=== PATIENT | female | born 1960 | race Caucasian/White ===

== ENCOUNTER 2018-04-27 15:56 | Inpatient (IN) | payer BC ==
[2018-04-27 17:52] LABS: Albumin 3.1 g/dL (3.5-5.0); Calcium 8.8 mg/dL (8.4-10.2); Potassium 3.7 mmol/L (3.5-5.1); Total Bilirubin 1.6 mg/dL (0.2-1.3); Total Protein 6.7 g/dL (6.3-8.2)
[2018-04-27 17:58] LABS: Basophils % (A) 0 %; Eosinophils % (A) 0 %; HCT 27.9 % (34.0-46.0); HGB 8.9 gm/dL (11.4-16.0); Lymphocytes # (A) 0.4 k/uL (1.0-4.8); Lymphocytes % (A) 1 %; MCH 29.8 pg (25.0-35.0); MCV 93.3 fL (80.0-100.0); Mean Platelet Volume 7.2; Monocytes # (A) 0.4 k/uL (0-1.0); Monocytes % (A) 1 %; Neutrophils # (A) 26.4 k/uL (1.3-7.7); Neutrophils % (A) 96 %; Platelet Count 567 k/uL (150-450); RBC 2.99 m/uL (3.80-5.40); RDW 13.3 % (11.5-15.5)
[2018-04-27 18:00] LABS: WBC 27.4 k/uL (3.8-10.6)
--- NOTE | 2018-04-27 18:11 | XR ---
EXAMINATION TYPE: XR chest 2V DATE OF EXAM: 04/27/2018 COMPARISON: NONE HISTORY: Fever and chills TECHNIQUE: Frontal and lateral views of the chest are obtained. FINDINGS: Heart and mediastinum are normal. There is very slight blunting of posterior costophrenic angles. Lungs are clear of consolidation. There is no heart failure. Bony thorax is intact. IMPRESSION: Small pleural effusions. Normal heart.
[2018-04-27] MEDS ORDERED: SODIUM CHLORIDE 0.9% 1,000 ML IV ONE (18:14)
[2018-04-27] MEDS ORDERED: cefTRIAXone IN SWFI 1,000 MG/10 ML SYRINGE IVP STA (18:14)
[2018-04-27] MEDS: SODIUM CHLORIDE 0.9% 1,000 ML IV SCH ×5 (18:37→23:48)
--- NOTE | 2018-04-27 19:00 | ED ---
Fever HPI - General Source: patient, RN notes reviewed, old records reviewed Mode of arrival: wheelchair Limitations: no limitations <Tash Lane - Last Filed: 04/27/18 20:14> <Kenny Adames - Last Filed: 04/27/18 20:31> - General Chief Complaint: Fever Stated Complaint: low blood pressure Time Seen by Provider: 04/27/18 17:51 - History of Present Illness Initial Comments: 57-year-old female presents emergency department today with chief complaint of fevers, chills, and body aches and weakness for the past week. Patient states that she did start to develop some right-sided back pain radiating towards her leg, she attributed this to sciatica. She was seen by PCP today for her annual physical. Patient had lab work obtained and was telling her PCP of these results. She did have some blood work obtained at that time. Her white blood cell count was noted to be elevated at 20,000 as well as a hemoglobin of 10. Her urine was negative for any acute issues on the sample from the office. Patient was sent in for further evaluation due to the back pain and rule out urosepsis. Her blood pressures have been low over the past week, Patient reports over 90/60 earlier in the week. Patient reports that she isn't feeling dizzy and weak. (Tash Lane) - Related Data Home Medications Medication Instructions Recorded Confirmed FLUoxetine HCL [PROzac] 40 mg PO DAILY 04/27/18 04/27/18 Fish Oil/Dha/Epa [Fish Oil 1,200 1 cap PO DAILY 04/27/18 04/27/18 mg Fish Oil] amLODIPine [Norvasc] 5 mg PO DIRECTED 04/27/18 04/27/18 Allergies Allergy/AdvReac Type Severity Reaction Status Date / Time amoxicillin [From Augmentin] Allergy Rash/Hives Verified 04/27/18 18:00 clavulanic acid Allergy Rash/Hives Verified 04/27/18 18:00 [From Augmentin] clindamycin Allergy Rash/Hives Verified 04/27/18 18:00 niacin Allergy Rash/Hives Verified 04/27/18 18:01 Sulfa (Sulfonamide Allergy Rash/Hives Verified 04/27/18 18:00 Antibiotics) metronidazole [From Flagyl] AdvReac Confusion Verified 04/27/18 18:00 Review of Systems ROS Other: All systems not noted in ROS Statement are negative. <Tash Lane - Last Filed: 04/27/18 20:14> ROS Other: All systems not noted in ROS Statement are negative. <Kenny Adames - Last Filed: 04/27/18 20:31> ROS Statement: Those systems with pertinent positive or pertinent negative responses have been documented in the HPI. Past Medical History Past Medical History: Hypertension Additional Past Medical History / Comment(s): cervical ca Past Surgical History: Appendectomy Additional Past Surgical History / Comment(s): cervix stent Past Psychological History: Depression Past Alcohol Use History: None Reported Past Drug Use History: None Reported <Tash Lane - Last Filed: 04/27/18 20:14> General Exam Limitations: no limitations General appearance: alert, in no apparent distress Head exam: Present: atraumatic, normocephalic, normal inspection Eye exam: Present: normal appearance, PERRL, EOMI. Absent: scleral icterus, conjunctival injection, periorbital swelling ENT exam: Present: normal exam, mucous membranes moist Neck exam: Present: normal inspection. Absent: tenderness, meningismus, lymphadenopathy Respiratory exam: Present: normal lung sounds bilaterally. Absent: respiratory distress, wheezes, rales, rhonchi, stridor Cardiovascular Exam: Present: regular rate, normal rhythm, normal heart sounds. Absent: systolic murmur, diastolic murmur, rubs, gallop, clicks GI/Abdominal exam: Present: soft, normal bowel sounds. Absent: distended, guarding, rebound, rigid Extremities exam: Present: normal inspection, full ROM, normal capillary refill. Absent: tenderness, pedal edema, joint swelling, calf tenderness Back exam: Present: normal inspection Neurological exam: Present: alert, oriented X3, CN II-XII intact Psychiatric exam: Present: normal affect, normal mood Skin exam: Present: warm, dry, intact, normal color. Absent: rash <Tash Lane - Last Filed: 04/27/18 20:14> <Kenny Adames - Last Filed: 04/27/18 20:31> - General Exam Comments Initial Comments: This is a 57-year-old female. Alert and oriented. No significant distress. ( Tash Lane) Course <Tash Lane - Last Filed: 04/27/18 20:14> <Kenny Adames - Last Filed: 04/27/18 20:31> Vital Signs 04/27/18 04/27/18 16:58 18:23 Temperature 98.6 F 98 F Pulse Rate 97 93 Respiratory 18 20 Rate Blood Pressure 107/67 122/59 O2 Sat by Pulse 99 95 Oximetry - Reevaluation(s) Reevaluation #1: 04/27/18 20:31 I personally saw and examined the patient. I have reviewed and agree with the PAs findings including all diagnostic interpretations treatment plans is written unless otherwise stated. I did discuss the case with Dr. Copeland. Patient has improved with respect to heart rate with fluids. She will be placed on appropriate antibiotics. (Kenny Adames) Medical Decision Making - Lab Data Result diagrams: 04/27/18 17:26 04/27/18 17:26 - Radiology Data Radiology results: report reviewed <Tash Lane - Last Filed: 04/27/18 20:14> - Lab Data Result diagrams: 04/27/18 17:26 04/27/18 17:26 <Kenny Adames - Last Filed: 04/27/18 20:31> - Medical Decision Making 57-year-old female presents emergency department today with fevers, chills body aches and elevated white blood cell count at PCPs office today. She's been feeling this way for the past week. Urinalysis is positive for infection. Urine culture obtained. She was started on fluid boluses and Rocephin. Patient 's lactic acid was within normal limits. White blood cell count does show dramatic increased from earlier today jumped from 20,000-27,000 this time. She' s had no vomiting episodes or diarrhea. Her hemoglobin has dropped to 8.9 at this time. I did check a fecal occult for GI source of bleeding. She denies any other sources at this time. Patient states that she's had a history of cervical cancer in 2007. She also had a colonoscopy in 2007. EKG G shows normal sinus rhythm, prolonged QT. Ventricular 80 bpm. She is afebrile emergency department. Patient was started on IV Rocephin. Patient will be admitted at this time. Dr. Adames discussed the case with Dr. Copeland. (Tash Lane) - Lab Data Lab Results 0804/27/18 04/27/18 Range/Units 17:26 17:26 17:26 WBC 27.4 H* (3.8-10.6) k/uL RBC 2.99 L (3.80-5.40) m/uL Hgb 8.9 L (11.4-16.0) gm/dL Hct 27.9 L (34.0-46.0) % MCV 93.3 (80.0-100.0) fL MCH 29.8 (25.0-35.0) pg MCHC 32.0 (31.0-37.0) g/dL RDW 13.3 (11.5-15.5) % Plt Count 567 H (150-450) k/uL Neutrophils % 96 % Lymphocytes % 1 % Monocytes % 1 % Eosinophils % 0 % Basophils % 0 % Neutrophils # 26.4 H (1.3-7.7) k/uL Lymphocytes # 0.4 L (1.0-4.8) k/uL Monocytes # 0.4 (0-1.0) k/uL Eosinophils # 0.0 (0-0.7) k/uL Basophils # 0.0 (0-0.2) k/uL Sodium 137 (137-145) mmol/L Potassium 3.7 (3.5-5.1) mmol/L Chloride 104 (98-107) mmol/L Carbon Dioxide 16 L (22-30) mmol/L Anion Gap 17 mmol/L BUN 15 (7-17) mg/dL Creatinine 0.90 (0.52-1.04) mg/dL Est GFR (CKD-EPI)AfAm 81 (>60 ml/min/1.73 sqM) Est GFR (CKD-EPI)NonAf 71 (>60 ml/min/1.73 sqM) Glucose 123 H (74-99) mg/dL Plasma Lactic Acid Regino 1.6 (0.7-2.0) mmol/L Calcium 8.8 (8.4-10.2) mg/dL Total Bilirubin 1.6 H (0.2-1.3) mg/dL AST 39 H (14-36) U/L ALT 37 (9-52) U/L Alkaline Phosphatase 300 H (38-126) U/L Troponin I (0.000-0.034) ng/mL Total Protein 6.7 (6.3-8.2) g/dL Albumin 3.1 L (3.5-5.0) g/dL Amylase (30-110) U/L Lipase (23-300) U/L Urine Color Urine Appearance (Clear) Urine pH (5.0-8.0) Ur Specific Carbon (1.001-1.035) Urine Protein (Negative) Urine Glucose (UA) (Negative) Urine Ketones (Negative) Urine Blood (Negative) Urine Nitrite (Negative) Urine Bilirubin (Negative) Urine Urobilinogen (<2.0) mg/dL Ur Leukocyte Esterase (Negative) Urine WBC (0-5) /hpf Ur Squamous Epith Cells (0-4) /hpf Urine Bacteria (None) /hpf Granular Casts (0) /lpf Urine Mucus (None) /hpf Stool Occult Blood (Negative) Blood Type Blood Type Recheck Antibody Screen Spec Expiration Date 04/27/18 04/27/18 04/27/18 Range/Units 17:26 17:26 18:48 WBC (3.8-10.6) k/uL RBC (3.80-5.40) m/uL Hgb (11.4-16.0) gm/dL Hct (34.0-46.0) % MCV (80.0-100.0) fL MCH (25.0-35.0) pg MCHC (31.0-37.0) g/dL RDW (11.5-15.5) % Plt Count (150-450) k/uL Neutrophils % % Lymphocytes % % Monocytes % % Eosinophils % % Basophils % % Neutrophils # (1.3-7.7) k/uL Lymphocytes # (1.0-4.8) k/uL Monocytes # (0-1.0) k/uL Eosinophils # (0-0.7) k/uL Basophils # (0-0.2) k/uL Sodium (137-145) mmol/L Potassium (3.5-5.1) mmol/L Chloride (98-107) mmol/L Carbon Dioxide (22-30) mmol/L Anion Gap mmol/L BUN (7-17) mg/dL Creatinine (0.52-1.04) mg/dL Est GFR (CKD-EPI)AfAm (>60 ml/min/1.73 sqM) Est GFR (CKD-EPI)NonAf (>60 ml/min/1.73 sqM) Glucose (74-99) mg/dL Plasma Lactic Acid Regino (0.7-2.0) mmol/L Calcium (8.4-10.2) mg/dL Total Bilirubin (0.2-1.3) mg/dL AST (14-36) U/L ALT (9-52) U/L Alkaline Phosphatase (38-126) U/L Troponin I (0.000-0.034) ng/mL Total Protein (6.3-8.2) g/dL Albumin (3.5-5.0) g/dL Amylase 33 (30-110) U/L Lipase 18 L (23-300) U/L Urine Color Yellow Urine Appearance Cloudy H (Clear) Urine pH 6.0 (5.0-8.0) Ur Specific Carbon 1.014 (1.001-1.035) Urine Protein 2+ H (Negative) Urine Glucose (UA) Negative (Negative) Urine Ketones 2+ H (Negative) Urine Blood Small H (Negative) Urine Nitrite Negative (Negative) Urine Bilirubin 1+ H (Negative) Urine Urobilinogen 4.0 (<2.0) mg/dL Ur Leukocyte Esterase Large H (Negative) Urine WBC 40 H (0-5) /hpf Ur Squamous Epith Cells 5 H (0-4) /hpf Urine Bacteria Few H (None) /hpf Granular Casts 2 (0) /lpf Urine Mucus Occasional H (None) /hpf Stool Occult Blood (Negative) Blood Type O Positive Blood Type Recheck CABO Indicated Antibody Screen NEGATIVE Spec Expiration Date 04/30/2018232504/27/18 04/27/18 Range/Units 19:20 20:10 WBC (3.8-10.6) k/uL RBC (3.80-5.40) m/uL Hgb (11.4-16.0) gm/dL Hct (34.0-46.0) % MCV (80.0-100.0) fL MCH (25.0-35.0) pg MCHC (31.0-37.0) g/dL RDW (11.5-15.5) % Plt Count (150-450) k/uL Neutrophils % % Lymphocytes % % Monocytes % % Eosinophils % % Basophils % % Neutrophils # (1.3-7.7) k/uL Lymphocytes # (1.0-4.8) k/uL Monocytes # (0-1.0) k/uL Eosinophils # (0-0.7) k/uL Basophils # (0-0.2) k/uL Sodium (137-145) mmol/L Potassium (3.5-5.1) mmol/L Chloride (98-107) mmol/L Carbon Dioxide (22-30) mmol/L Anion Gap mmol/L BUN (7-17) mg/dL Creatinine (0.52-1.04) mg/dL Est GFR (CKD-EPI)AfAm (>60 ml/min/1.73 sqM) Est GFR (CKD-EPI)NonAf (>60 ml/min/1.73 sqM) Glucose (74-99) mg/dL Plasma Lactic Acid Regino (0.7-2.0) mmol/L Calcium (8.4-10.2) mg/dL Total Bilirubin (0.2-1.3) mg/dL AST (14-36) U/L ALT (9-52) U/L Alkaline Phosphatase (38-126) U/L Troponin I <0.012 (0.000-0.034) ng/mL Total Protein (6.3-8.2) g/dL Albumin (3.5-5.0) g/dL Amylase (30-110) U/L Lipase (23-300) U/L Urine Color Urine Appearance (Clear) Urine pH (5.0-8.0) Ur Specific Carbon (1.001-1.035) Urine Protein (Negative) Urine Glucose (UA) (Negative) Urine Ketones (Negative) Urine Blood (Negative) Urine Nitrite (Negative) Urine Bilirubin (Negative) Urine Urobilinogen (<2.0) mg/dL Ur Leukocyte Esterase (Negative) Urine WBC (0-5) /hpf Ur Squamous Epith Cells (0-4) /hpf Urine Bacteria (None) /hpf Granular Casts (0) /lpf Urine Mucus (None) /hpf Stool Occult Blood Negative (Negative) Blood Type Blood Type Recheck Antibody Screen Spec Expiration Date 04/27/18 20:21 EKG shows sinus rhythm, prolonged QT. Ventricular rate of 80 bpm. OK interval is 174. QRS duration 96. QT QTc is 412/4 and 98. (Tash Lane) - Radiology Data No evidence of renal or ureteral calculus. Slight fullness of the renal collecting systems of uncertain significance. Mild large bowel mesenteric edema on the right side more than the left. Clinical significance not clear. No intestinal wall thickening identified. Minimal free fluid in the pelvis of uncertain significance. Chest x-ray shows small pleural effusions. Normal heart. (Tsah Lane) Disposition Is patient prescribed a controlled substance at d/c from ED?: No Time of Disposition: 20:21 <[address] - Last Filed: 04/27/18 20:14> <Kenny Adames - Last Filed: 04/27/18 20:31> Clinical Impression: UTI (urinary tract infection), Sepsis, Anemia, Weakness Disposition: ADMITTED IP TO THIS HOSP Condition: Stable Instructions: Fever in Adults (ED) Referrals: Carlos Chadwick MD [Primary Care Provider] - 1-2 days
[2018-04-27 19:01] LABS: Appearance,Urine Cloudy (Clear); Bacteria,Urine Few /hpf; Bilirubin,Urine 1+ (Negative); Blood,Urine Small (Negative); Color,Urine Yellow; Glucose,Urine (UA) Negative (Negative); Granular Casts,Urine 2 /lpf (0); Ketones,Urine 2+ (Negative); Leukocyte Esterase,Urine Large (Negative); Mucus,Urine Occasional /hpf; Nitrite,Urine Negative (Negative); Protein,Urine 2+ (Negative); Specific Gravity,Urine 1.014 (1.001-1.035); Squamous Epithelial Cell,Urine 5 /hpf (0-4); WBC,Urine 40 /hpf (0-5)
[2018-04-27 19:30] LABS: Amylase 33 U/L (30-110); Lipase 18 U/L (23-300)
--- NOTE | 2018-04-27 20:09 | CT ---
EXAMINATION TYPE: CT abdomen pelvis w con DATE OF EXAM: 04/27/2018 COMPARISON: None HISTORY: Fever, chills, weakness. CT DLP: 1425 mGycm Automated exposure control for dose reduction was used. TECHNIQUE: Helical acquisition of images was performed from the lung bases through the pelvis. CONTRAST: Performed without Oral Contrast and with IV Contrast, patient injected with 100 mL of Isovue 300. FINDINGS: Lung bases are clear. There is no pleural effusion. Heart size is normal. Liver spleen pancreas appear normal. Gallbladder appears normal. Bile ducts are not dilated. There is no adrenal mass. The kidneys show satisfactory contrast opacification. There is slight fulln ess of the left and right renal pelvis. Ureters are not dilated. There are multiple enlarged retroper itoneal lymph nodes. These measure up to 2 x 1.2 cm. The appendix is not seen. There is no sign of ap pendicitis. There is no evidence of free air. There is a tiny amount of fluid in the pelvis. There is minimal edema in the pericolic fat. I see no intestinal wall thickening. There are no dilated loops. There is no sign of a bowel obstruction. There is no evidence of bony destructive process. IMPRESSION: NO EVIDENCE OF A RENAL OR URETERAL CALCULUS. SLIGHT FULLNESS OF THE RENAL COLLECTING SYSTEMS OF UNCER TAIN SIGNIFICANCE. MILD LARGE BOWEL MESENTERIC EDEMA ON THE RIGHT SIDE MORE THAN THE LEFT. CLINICAL S IGNIFICANCE IS NOT CLEAR. THERE IS NO INTESTINAL WALL THICKENING IDENTIFIED. THERE IS MINIMAL FREE FL UID IN THE PELVIS THAT IS OF UNCERTAIN SIGNIFICANCE.
[2018-04-27] MEDS ORDERED: ACETAMINOPHEN TAB 325 MG TAB PO PRN (20:26)
[2018-04-27] MEDS ORDERED: ONDANSETRON 4 MG/2 ML VIAL IVP PRN (20:26)
[2018-04-27] MEDS ORDERED: MORPHINE SULFATE 4 MG/ML SYRINGE IV PRN (20:26)
[2018-04-27] MEDS ORDERED: NALOXONE 0.4 MG/ML 1 ML VIAL IV PRN (20:26)
[2018-04-27] MEDS ORDERED: IBUPROFEN 400 MG TAB PO PRN (20:26)
[2018-04-27] MEDS: KETOROLAC 30 MG/ML 1 ML VIAL IVP PRN (23:44)
[2018-04-28] MEDS ORDERED: ALPRAZolam 0.25 MG TAB PO PRN (01:14)
[2018-04-28] MEDS ORDERED: amLODIPine 10 MG TAB PO SCH (01:15)
[2018-04-28] MEDS: Acetaminophen-Codeine 300-30mg TAB PO PRN ×2 (06:07→10:26)
[2018-04-28] MEDS: SODIUM CHLORIDE 0.9% 1,000 ML IV SCH (06:07)
[2018-04-28 07:39] LABS: ALT 31 U/L (9-52); AST 23 U/L (14-36); Albumin 2.3 g/dL (3.5-5.0); Alkaline Phosphatase 212 U/L (38-126); Anion Gap 10 mmol/L; Blood Urea Nitrogen 13 mg/dL (7-17); Calcium 8.1 mg/dL (8.4-10.2); Carbon Dioxide 17 mmol/L (22-30); Chloride 113 mmol/L (98-107); Glucose 115 mg/dL (74-99); Potassium 3.2 mmol/L (3.5-5.1); Sodium 140 mmol/L (137-145); Total Bilirubin 0.9 mg/dL (0.2-1.3); Total Protein 5.1 g/dL (6.3-8.2)
--- NOTE | 2018-04-28 08:38 | PN ---
PROGRESS NOTE DATE OF SERVICE: 04/28/2018 CHIEF COMPLAINTS: Fever and low blood pressure. HISTORY OF PRESENT ILLNESS: This is a 57-year-old woman with a past medical history of multiple medical problems including history of hypertension, cervical cancer, history of sciatica, appendectomy, being followed by Dr. Lore Maria in the outpatient setting, is not feeling well for the past several days. Patient had chills, fever since 8/ and patient was also noted blood pressure low compared to previous only running at 100 and high 90s. Because of concerns, patient came to [facility] for further evaluation. White count is elevated to 7.8, hemoglobin is 8.9, sepsis suspected. Patient is in for further evaluation and treatment. Abdominal, pelvis CAT scan was also done which showed mild . The patient also had no intestinal wall thickening identified and minimal free fluid was also noted. Patient admitted for further evaluation and treatment. There is no history of any fever, rigors. No history of headache, loss of consciousness, seizures. The patient had chemoradiation for cervical cancer in 2018. PAST MEDICAL HISTORY: History of hypertension, cervical cancer, appendectomy. MEDICATIONS PRIOR TO ADMISSION INCLUDE: 1. Norvasc 5 mg daily. 2. Fish oil p.o. daily. 3. Prozac 40 mg daily. ALLERGIES: AMOXICILLIN, CLAVULANIC, CLINDAMYCIN, NIACIN, SULFA, FLAGYL. FAMILY HISTORY: History of myocardial infarction in the family. SOCIAL HISTORY: No history of smoking. No history of alcohol intake. REVIEW OF SYSTEMS: ENT: No diminished hearing or vision. CARDIOVASCULAR SYSTEM: No angina or palpitations. RESPIRATORY: As mentioned earlier. : As mentioned earlier. : As mentioned earlier. NERVOUS SYSTEM: No numbness or weakness. ALLERGY/IMMUNOLOGY: No asthma or hayfever. MUSCULOSKELETAL: As mentioned earlier. HEMATOLOGY: No history of anemia. ENDOCRINE: No history of diabetes, hypothyroidism. CONSTITUTIONAL: As mentioned earlier. DERMATOLOGY: Negative. RHEUMATOLOGY: Negative. PSYCHIATRY: As mentioned earlier. PHYSICAL EXAM: Alert, oriented x3, pulse 87, blood pressure 108/86, respiration 18, temperature 97.8, pulse ox 98% on room air. HEENT: Conjunctivae normal. Oral mucosa moist. Neck is no jugular venous distention. No lymph node enlargement. CARDIOVASCULAR: S1, S2, muffled, no S3, no S4. RESPIRATORY: Breath sounds diminished in the bases, a few scattered rhonchi. No crackles. ABDOMEN: Soft, mild diffuse discomfort. Otherwise, no guarding, no rigidity. No mass palpable. LEGS: No edema,. no swelling. NERVOUS SYSTEM: Higher functions as mentioned earlier, moves all 4 limbs, no focal motor deficits. LYMPHATICS: No lymph node enlargement. SKIN: No ulcer, rash or bleeding. LABS: WBC 7.2, hemoglobin is 8.9, sodium 139, potassium 3.7. Total bilirubin is 1.6 and AST is 39. Alk phos is 300, UA noted. ASSESSMENT: 1. Acute urinary tract infection with sepsis, possibly. 2. Increased AST. 3. Increased alkaline phosphatase. 4. Increased WBC. 5. Anemia, normocytic anemia of chronic disease. 6. Hypertension. 7. History of cervical cancer, status post chemo radiation. 8. History of appendectomy/. 9. History of depression. RECOMMENDATION: In This 57-year-old woman who presented with multiple complex medical issues, will monitor the patient closely. Will initiate broad-spectrum IV antibiotics. Obtain cultures. Get Infectious Disease evaluation. Otherwise, I would also recommend symptomatic treatment. See orders for further details. Home medication be will be ordered. DVT prophylaxis and proton pump inhibitors, guarded prognosis because of multiple complex medical issues. Further recommendations to follow. A copy of this will be forwarded to Lore Maria who is the primary physician. MMODL / IJN: [id number] / MTDD
[2018-04-28] MEDS ORDERED: NON-FORMULARY DRUG (Fish Oil/Dha/Epa [Fish Oil 1,200 Mg Fish Oil] 1 CAP) PO SCH (09:00)
[2018-04-28] MEDS: HEPARIN SODIUM,PORCINE 5,000 UNIT/ML 1 ML VIAL SQ SCH ×2 (10:11→21:14)
[2018-04-28] MEDS: FLUoxetine HCL 20 MG CAP PO SCH (10:11)
[2018-04-28] MEDS: PANTOPRAZOLE 40 MG/10 ML VIAL IV SCH ×2 (10:12→10:25)
[2018-04-28] MEDS: cefTRIAXone IN SWFI 1,000 MG/10 ML SYRINGE IVP SCH (10:26)
[2018-04-28] MEDS ORDERED: Potassium Replacement Protocol 1 EACH MISC MISCELLANE PRN ×2 (11:27→18:42)
[2018-04-28] MEDS: POTASSIUM CHLORIDE ER 20 MEQ TAB.ER PO SCH ×2 (12:18→15:25)
[2018-04-28] MEDS ORDERED: HYDROmorphone 1 MG/ML 1 ML SYRINGE IVP PRN (12:24)
[2018-04-28] MEDS ORDERED: VANCOMYCIN IV PER PHARMACY 1 EACH MISC MISCELLANE PRN (13:35)
--- NOTE | 2018-04-28 14:49 | CT ---
EXAMINATION TYPE: CT brain wo con DATE OF EXAM: 04/28/2018 COMPARISON: None HISTORY: Headache CT DLP: 793.[address] of the brain was performed. The ventricles, basal cisterns and sulci overlying the cerebral convexities demonstrate a normal appe arance. There is no evidence for intracranial hemorrhage or sulcal effacement. No mass effects are seen.No midline shift. Osseous calvarium is intact. If symptoms persist consider MRI. IMPRESSION: 1. No evidence for acute intracranial process.
[2018-04-28] MEDS: VANCOMYCIN 1,250 MG in SODIUM CHLORIDE 0.9% 250 ML IVPB SCH ×2 (15:25→21:13)
[2018-04-28] MEDS: 0.9% NACL WITH KCL 20 MEQ/L 1,000 ML IV SCH (17:09)
[2018-04-28 17:48] LABS: Basophils % (A) 0 %; Eosinophils % (A) 0 %; HCT 30.3 % (34.0-46.0); HGB 9.8 gm/dL (11.4-16.0); Lymphocytes # (A) 0.6 k/uL (1.0-4.8); Lymphocytes % (A) 3 %; MCH 29.9 pg (25.0-35.0); MCHC 32.4 g/dL (31.0-37.0); MCV 92.3 fL (80.0-100.0); Monocytes # (A) 0.4 k/uL (0-1.0); Monocytes % (A) 2 %; Neutrophils # (A) 18.9 k/uL (1.3-7.7); Neutrophils % (A) 94 %; Platelet Count 433 k/uL (150-450); RBC 3.28 m/uL (3.80-5.40); RDW 13.3 % (11.5-15.5); WBC 20.1 k/uL (3.8-10.6)
[2018-04-28] MEDS ORDERED: POTASSIUM CHLORIDE ER 20 MEQ TAB.ER PO SCH (19:00)
--- NOTE | 2018-04-28 20:21 | PN ---
PROGRESS NOTE DATE OF SERVICE: 04/28/2018 This 57-year-old woman was admitted with fever and hypotension. Low blood pressure is being closely monitored. Patient also complains of a headache. No chest pain. No palpitations. No fever. A CT scan of the brain was requested by me today this morning because of the patient's severe headache which showed no evidence of intracranial process. Headache could be related to the generalized septic process. PAST MEDICAL HISTORY: Reviewed. REVIEW OF SYSTEMS: CARDIOVASCULAR: No angina. RESPIRATORY: As mentioned earlier. GI: As mentioned earlier. : As mentioned earlier. NERVOUS: As mentioned earlier. CURRENT MEDICATIONS: Reviewed, include: 1. Tylenol 650 every 6 hours p.r.n. 2. Tylenol No.3. 3. Rocephin 1 g IV daily. 4. Prozac. 5. Heparin. 6. Dilaudid. 7. Motrin. 8. Narcan. 9. Protonix. 10.Vancomycin. PHYSICAL EXAM: Patient is alert, oriented x3. The pulse is 88, blood pressure 170/65, respirations 18, temperature 97.3, pulse ox 96% on room air. HEENT: Conjunctivae normal. Oral mucosa moist. NECK: No jugular venous distention. No carotid bruits. No lymph node enlargement. CARDIOVASCULAR: S1, S2 muffled. RESPIRATORY: Breath sounds diminished in the bases. No rhonchi. No crackles. ABDOMEN: Soft, nontender. No mass palpable. LEGS: No edema. No swelling. NERVOUS SYSTEM: Higher functions as mentioned earlier. Moves all 4 limbs. No focal deficits. LYMPHATIC: No lymph nodes palpable in neck or axillae. SKIN: No ulcer, rash or bleeding. No neck stiffness. LAB STUDIES: At this time show CBC not available. WBC 140. Potassium 3.2 and albumin is 2.3. UA noted. Cultures are negative so far. ASSESSMENT: 1. Acute urinary tract infection with sepsis present on admission. 2. Headaches for evaluation. 3. Increased AST. 4. Increased alkaline phosphatase. 5. Urinalysis positive. 6. Increased WBC. 7. Anemia, normocytic anemia of chronic disease. 8. Hypertension. 9. History of cervical cancer, status post chemotherapy, radiation. 10.History of appendectomy. 11.History of depression. RECOMMENDATIONS AND DISCUSSION: Recommend to continue current medical management and symptomatic treatment. Will continue with empiric antibiotics and also get Infectious Disease evaluation. Cultures are pending at this time. Otherwise, continue the rest of medications, symptomatic treatment. Prognosis guarded because of multiple complex medical issues. CT of brain as mentioned earlier. Further recommendations to follow. MMODL / IJN: [id number] /
[2018-04-29] MEDS: 0.9% NACL WITH KCL 20 MEQ/L 1,000 ML IV SCH ×3 (02:43→23:57)
--- NOTE | 2018-04-29 07:36 | CONS ---
CONSULTATION DATE OF SERVICE: 04/28/2018. REASON FOR CONSULTATION: 1. Leukocytosis. 2. Positive blood culture. HISTORY OF PRESENT ILLNESS: The patient is a 57-year-old female presenting to the ER at [facility] yesterday with chief complaints of fever and elevated white count. The patient seemed having fever with rigors and chills, generalized body aches along with being going on for about a week prior to presentation to the hospital. The patient also seemed to have pain in her right side of the back radiating to the right leg with the patient has been attributing to her sciatica. The patient denies having any history of any fall. Pain to the back and the leg is more of a dull aching pain about 5 out of 10 and no radiation. The patient did have mild burning of the urine but no significant frequency. Lower abdominal pain. Some nausea but no vomiting. Denies any chest pain or shortness of breath or cough. Apparently the patient did have blood work done in the PCP office which showed noted to have white count of 20,000 and the patient was advised to go to the hospital. On arrival to the ER, the patient has been afebrile. The white count done at this facility was 27.4. She did have a positive UA which was cloudy, large leukocyte esterases with 40 WBC. She did have a CT of abdomen and pelvis that was done with IV contrast only. Did not show any destructive process in the spine, any abnormality in the bowel or any renal calculus. Mild large bowel with mesenteric edema on the right side. The patient did have MULTIPLE ANTIBIOTIC ALLERGIES. She was started on Rocephin. Blood cultures obtained with blood cultures remain positive with gram-positive cocci. Infectious disease was consulted for further recommendations regarding antibiotic therapy. REVIEW OF SYSTEMS: Constitutional: Positive for weakness along with fever and chills. Eyes: No complaint. ENT no complaint. Respiratory no complaint. Cardiovascular no complaint. Genitourinary as per HPI. GASTROINTESTINAL: No complaint. Musculoskeletal as per HPI. INTEGUMENTARY: no complaint. Psychological no complaint. Endocrine no complaint. Neurologic no complaint. PAST MEDICAL HISTORY: Significant for cervical cancer and hypertension, depression. PAST SURGICAL HISTORY: Appendectomy. SOCIAL HISTORY: Denies smoking, drinking or drug use. FAMILY HISTORY: No pertinent findings noticed. ALLERGIES: AMOXICILLIN, AUGMENTIN, CLINDAMYCIN, SULFA, AND FLAGYL. MEDICATIONS: Include the patient is currently on Tylenol, Xanax, Rocephin 1 g daily and Prozac, heparin, Dilaudid, Motrin, Toradol, Narcan, Zofran, Protonix, potassium chloride, Restoril. EXAMINATION: Blood pressure is 102/53 with a pulse of 86. Temperature 97.3. She is 96% on room air. General description is a middle aged female lying in bed in no distress. No tachypnea or accessory muscle of respiration use. HEENT: Shows slight pallor. No scleral icterus. Oral mucosa membranes are dry. No pharyngeal erythema or thrush. Neck trachea central. No thyromegaly. Lungs: Unlabored breathing with decreased breath sounds in the base, with no wheeze. Heart: S1, S2. Regular rate and rhythm. ABDOMEN: Soft, no tenderness. No rigidity. EXTREMITIES: No edema of the feet. Skin examination: No rash or mass palpable. Neurological: Patient is awake, alert, oriented times three. Mood and affect normal. LABS: Hemoglobin 9.8. Admission white count 27.4. UA is positive. BUN of 13, creatinine 0.76. Liver enzymes are normal. Blood culture showed gram-positive cocci. Urine culture currently pending. IMPRESSION/PLAN: 1. Patient presenting to the hospital with a fever. The patient was noticed to have a positive UA with concern for likely urinary tract infection, likely from enteric gram-negative pathogen. 2. Patient now with gram-positive bacteremia. Patient also complained of some pain in the low back radiating to the right leg. CT abdomen and pelvis did not show any destructive process in the spine. We will wait for the final ID of this pathogen to determine the need for any further workup, if it turns out to be E coli, will be needed, it is more likely representing a contamination. PLAN: 1. Blood culture has been repeated to make sure no evidence of any persistent bacteremia. 2. Vancomycin pharmacy to dose target of 15 while waiting for the final ID of this pathogen and . 3. Rocephin 1 g daily. 4. We will follow on her clinical condition as well as cultures to further adjust medication if needed. Thank you for this consultation. We will follow this patient along with you. MMODL / IJN: [id number] /
[2018-04-29 07:44] LABS: Basophils # (A) 0.1 k/uL (0-0.2); Basophils % (A) 0 %; Eosinophils % (A) 0 %; HCT 27.6 % (34.0-46.0); HGB 9.1 gm/dL (11.4-16.0); Lymphocytes # (A) 0.7 k/uL (1.0-4.8); Lymphocytes % (A) 3 %; MCH 30.9 pg (25.0-35.0); MCHC 32.9 g/dL (31.0-37.0); Mean Platelet Volume 7.3; Monocytes # (A) 0.4 k/uL (0-1.0); Monocytes % (A) 2 %; Neutrophils # (A) 20.7 k/uL (1.3-7.7); Neutrophils % (A) 94 %; Platelet Count 450 k/uL (150-450); RBC 2.94 m/uL (3.80-5.40); RDW 13.6 % (11.5-15.5)
[2018-04-29] MEDS: VANCOMYCIN 1,250 MG in SODIUM CHLORIDE 0.9% 250 ML IVPB SCH (07:55)
[2018-04-29] MEDS: cefTRIAXone IN SWFI 1,000 MG/10 ML SYRINGE IVP SCH (07:56)
[2018-04-29] MEDS: FLUoxetine HCL 20 MG CAP PO SCH (07:56)
[2018-04-29] MEDS: HEPARIN SODIUM,PORCINE 5,000 UNIT/ML 1 ML VIAL SQ SCH ×2 (07:56→22:23)
[2018-04-29] MEDS: PANTOPRAZOLE 40 MG/10 ML VIAL IV SCH (07:56)
[2018-04-29] MEDS: KETOROLAC 30 MG/ML 1 ML VIAL IVP PRN ×2 (07:57→22:23)
[2018-04-29 08:07] LABS: Anion Gap 9 mmol/L; Blood Urea Nitrogen 17 mg/dL (7-17); Calcium 8.1 mg/dL (8.4-10.2); Carbon Dioxide 16 mmol/L (22-30); Chloride 112 mmol/L (98-107); Glucose 117 mg/dL (74-99); Potassium 3.7 mmol/L (3.5-5.1); Sodium 137 mmol/L (137-145)
[2018-04-29] MEDS ORDERED: cefTRIAXone IN SWFI 2,000 MG/20 ML SYRINGE IVP SCH (13:15)
[2018-04-29] MEDS ORDERED: cefTRIAXone IN SWFI 1,000 MG/10 ML SYRINGE IVP SCH (13:15)
[2018-04-29] MEDS ORDERED: cefTRIAXone IN SWFI 1,000 MG/10 ML SYRINGE IVP STA (13:18)
--- NOTE | 2018-04-29 13:40 | PN ---
PROGRESS NOTE DATE OF SERVICE: 04/29/2018. REASON FOR FOLLOWUP: 1. Urinary tract infection. 2. Gram-positive bacteremia. INTERVAL HISTORY: The patient is currently afebrile. She is breathing more comfortably. Denies significant chest pain. Occasional cough. No abdominal pain. Urinary symptom has improved. The pain she was complaining of on the back and the right leg has resolved. Complaining of just generalized weakness. PHYSICAL EXAMINATION: On examination, blood pressure is 123/58 with a pulse of 78, temperature of 98.4. She is 96% on room air. General description is a middle-aged female lying in bed in no distress. RESPIRATORY SYSTEM: Unlabored breathing, clear to auscultation anteriorly. HEART: S1, S2. Regular rate and rhythm. ABDOMEN: Soft, no tenderness. EXTREMITIES: No edema of the feet. LABS: Hemoglobin is 9.1, white count 22,000 with a BUN of 17, creatinine 0.79. Blood culture showing a Streptococcus pyogenes. Urine showing gram-negative. DIAGNOSTIC IMPRESSION AND PLAN: Patient admitted to the hospital with generalized weakness and fever with concern for urinary tract infection. She also has positive blood cultures with Streptococcus pyogenes which is usually of a skin and soft tissue origin or a respiratory tract. The patient did not have significant symptoms too suspicious for pneumonia and no evidence of any cellulitis. Blood culture has been repeated to document . She did have a component of urinary tract infection for which the patient is currently covered with Rocephin that will be continued. Dose was adjusted to 2 grams, that should cover both the pyogenes as well as the urinary tract infection and discontinue the vancomycin. Continue supportive care. MMODL / IJN: [id number] /
--- NOTE | 2018-04-29 19:19 | PN ---
PROGRESS NOTE DATE OF SERVICE: 04/29/2018 This 57-year-old woman was admitted with acute UTI with sepsis is still complaining of not feeling well as well as headache also. The urine culture showed gram- negative bacilli and blood cultures patient on broad IV antibiotics. Infectious disease is following the patient closely. PAST MEDICAL HISTORY: Reviewed. REVIEW OF SYSTEMS: Cardiovascular: No angina or palpitations. Respiratory: As mentioned earlier. GI: No nausea or vomiting. : As mentioned earlier. Central nervous system: No focal deficits. CURRENT MEDICATIONS: Reviewed and include: 1. Tylenol 650 q.6h. 2. Tylenol #3. 3. Xanax 0.25 t.i.d. 4. Rocephin 2 g daily. 5. Prozac 40 mg daily. 6. Heparin 5000 subcu b.i.d. 7. Dilaudid. 8. Motrin. 9. Ketorolac. 10.Morphine sulfate. 11.Narcan. 12.Zofran. 13.Protonix. 14.Restoril. PHYSICAL EXAM: Patient is alert, oriented x3. Pulse is 78. Blood pressure is 120/73, respiratory rate 18, temp 98.2, pulse ox 98% on room air. HEENT: Conjunctivae normal. Oral mucosa moist. Neck is no jugular venous distention. No carotid bruit. No lymph node enlargement. Cardiovascular system: S1, S2 muffled. Respirations: Breath sounds diminished in the bases. A few scattered rhonchi and crackles. ABDOMEN: Soft, nontender. Legs: No edema. No swelling. Central nervous system: No focal deficits. LABORATORY DATA: and 8.1, sodium 137, potassium 3.7. ASSESSMENT: 1. Acute urinary tract infection with possible sepsis present on admission with gram- negative bacilli. 2. Strep pyogenes from the blood. 3. Headache for evaluation. 4. Increased AST. 5. Increased alkaline phosphatase. 6. Increased WBC. 7. Anemia, normocytic anemia of chronic disease. 8. Hypotension. 9. History of cervical cancer, status post chemotherapy, radiation. 10.History of appendectomy. 11.History of depression. RECOMMENDATIONS AND DISCUSSION: Continue current medications. Continue to monitor. Symptomatic treatment. Otherwise at this time monitor the patient closely. Otherwise, continue the IV antibiotics. Follow the cultures for the final ID closely with Infectious Disease. Guarded prognosis because of multiple complex medical issues and continue the rest of medications including DVT prophylaxis and as well as proton pump inhibitors. Supplement vitamins. Prognosis guarded. Further recommendations to follow. MMODL / IJN: [id number] / ADRIANO
[2018-04-30] MEDS: 0.9% NACL WITH KCL 20 MEQ/L 1,000 ML IV SCH ×3 (01:56→16:52)
[2018-04-30 08:02] LABS: Calcium 8.2 mg/dL (8.4-10.2); HCT 29.4 % (34.0-46.0); HGB 9.5 gm/dL (11.4-16.0); Hypochromasia Slight; MCH 30.6 pg (25.0-35.0); MCHC 32.2 g/dL (31.0-37.0); MCV 95.2 fL (80.0-100.0); Platelet Count 511 k/uL (150-450); Potassium 3.7 mmol/L (3.5-5.1); RBC 3.09 m/uL (3.80-5.40); RDW 13.6 % (11.5-15.5); WBC 16.8 k/uL (3.8-10.6)
[2018-04-30] MEDS: cefTRIAXone IN SWFI 2,000 MG/20 ML SYRINGE IVP SCH (09:25)
[2018-04-30] MEDS: FLUoxetine HCL 20 MG CAP PO SCH (09:28)
[2018-04-30] MEDS: HEPARIN SODIUM,PORCINE 5,000 UNIT/ML 1 ML VIAL SQ SCH ×2 (09:28→21:50)
[2018-04-30] MEDS: KETOROLAC 30 MG/ML 1 ML VIAL IVP PRN (09:33)
[2018-04-30 09:49] LABS: Band Neutrophils % 6 %; Lymphocytes # (M) 0.84 k/uL (1.0-4.8); Metamyelocytes # (M) 0.34 k/uL (0); Metamyelocytes % 2 %; Monocytes # (M) 0.34 k/uL (0-1.0); Myelocytes % 3 %; Neutrophils % (M) 83 %; Nucleated Red Blood Cells 0 /100 WBC (0-0); Total Cells Counted 200
--- NOTE | 2018-04-30 14:02 | MR ---
MR lspine/sacrum wo/w con Epidural abscess Gadavist Multiplanar, multiecho imaging of the lumbar spine was obtained without contrast on a 3 Rachel magnet. REFERENCE:None. FINDINGS: Paraspinal soft tissues are normal. There is fairly marked atrophy of the paraspinal muscu lature. There is abnormal signal in all of the vertebral bodies with sparing of L5 and the sacrum. This may r epresent distribution of red and yellow marrow elements. Infiltrative processes are not entirely excl uded. Vertebral body height and alignment are maintained. The distal spinal cord is not well visualized due to lack of resonance between the magnet patient. The conus appears to terminate at the level of the mid body of L1. At T12-L1, the level is not well visualized. At L1-2, the intervertebral foramina are well maintained. There is no significant compressive discopa thy. There is mild capsulitis in the facets. At L2-3, there is a minimal central disc displacement. This is effacing the thecal sac. Intervertebra l foramina appear well maintained. There is hypertrophic change and capsulitis within the facets. At L3-4, there is mild disc space loss. The intervertebral foramina are reasonably well-maintained. T here is hypertrophic change in the facets. There is mild trefoiling of the thecal sac. At L4-5, there is mild disc space loss. There is marked hypertrophic change and capsulitis within the facets. There is a mild, diffuse disc displacement. There is moderate central canal stenosis. At L5-S1, the intervertebral foramina are reasonably well-maintained. There is no significant dolores sive discopathy. There is hypertrophic change and capsulitis within the facets. Sacrum: There is a moderate amount of free fluid within the pelvis. Marrow signal within the sacrum i s normal. There is no evidence of an epidural abscess. IMPRESSION: 1. NO EVIDENCE OF AN EPIDURAL ABSCESS AT THIS TIME. 2. MODERATE FREE FLUID WITHIN THE PELVIS. 3. MODERATE CENTRAL CANAL STENOSIS, L4-5. 4. DIFFUSE FACET ARTHROPATHY. 5. ABNORMAL MARROW SIGNAL IN THE VERTEBRAL BODIES ABOVE L5 MAY REFLECT DISTRIBUTION OF RED AND YELLOW MARROW ELEMENTS. PLEASE CORRELATE FOR HISTORY OF SMOKING, ANEMIA OR INFILTRATIVE DISEASE.
[2018-04-30] MEDS: THIAMINE 100 MG TAB PO SCH (14:52)
[2018-04-30] MEDS: FOLIC ACID 1 MG TAB PO SCH (14:52)
[2018-04-30] MEDS: MULTIVITAMINS, THERA 1 EACH TAB PO SCH (14:52)
--- NOTE | 2018-04-30 15:43 | PN ---
PROGRESS NOTE DATE OF SERVICE: 04/30/2018 This 57-year-old woman is admitted with UTI with sepsis also had also had multiple organisms grown. The patient had strep pyogenes from the blood and as well as Enterobacter cloacae which is cloacae from the urine. The patient is still complaining of back pain also. White count is elevated. I have ordered lumbar spine MRI today to rule out the possibly epidural abscess this morning. Showed no discernible abscess but moderate free fluid within the pelvis and moderate central canal stenosis and diffuse facet arthropathy. The patient is being closely monitored at this time. Please note an abdominal and pelvis CAT scan was done earlier showed large bowel mesenteric edema. PAST MEDICAL HISTORY: Reviewed. REVIEW OF SYSTEMS: Cardiovascular: No angina or palpitations. Respiration: No cough. GI mentioned earlier. as mentioned earlier. Nervous system: No numbness or weakness. CURRENT MEDICATIONS ARE: 1. Tylenol 650 q.6h p.r.n. 2. Tylenol #3. 3. Xanax 0.5 t.i.d. 4. Rocephin 2 g daily. 5. Prozac 40 mg. 6. Folic acid 1 mg. 7. Heparin 5000 subcu b.i.d. 8. Dilaudid 0.5 mg q.6h p.r.n. 9. Motrin 400 mg q.6h. 10.Toradol 30 mg q.8h p.r.n. 11.Potassium protocol. 12.Morphine sulfate 4 mg IV q.6 hours. 13.Narcan 0.2 q.2h p.r.n. 14.Zofran 4 mg daily. 15.Protonix 40 mg daily. 16.Restoril 15 mg q.h.s. 17.Vitamin B1 100 mg p.o. daily. PHYSICAL EXAMINATION: Alert and oriented x3. Pulse 79. Blood pressure 128/62, respirations 18, temp 97.4, pulse ox 98 percent on room air. HEENT: Conjunctivae normal. Oral mucosa moist. Neck is no jugular venous distention. No carotid bruit. No lymph node enlargement. Cardiovascular systems: S1, S2 muffled. Respirations: Breath sounds diminished in the bases. No rhonchi and no crackles. ABDOMEN: Soft, mild diffuse discomfort. Examination of the back with some tenderness present. Lymphatics: No lymph nodes palpable in the neck, axillae or groin. Joints: No active deforming arthropathy. LABS: WBC 16.2, hemoglobin 9.5. Neutrophils are 14.9. Glucose 100. 1. Acute urinary tract infection with possible sepsis with Enterobacter cloacae present on admission. 2. Strep pyogenes Group A from blood which poly sensitive with sepsis. 3. Headache. 4. Back pain. No evidence of any paraspinal abscess. 5. Increased AST. 6. Increased alkaline phosphatase. 7. Increased WBC. 8. Anemia, normocytic anemia of chronic disease. 9. Hypertension. 10.History of cervical cancer status post chemotherapy, and radiation. 11.History of appendectomy. 12.History of depression. RECOMMENDATIONS AND DISCUSSION: Recommend to continue current medications, management and symptomatic treatment. Continue with current medication. Repeat cultures are negative so far. Continue broad spectrum IV antibiotics. Closely follow with Infectious Disease. MRA which was ordered urgent is noted. I would also recommend at this time, repeat CT scan to evaluate for any presence of free fluid also. The prognosis guarded because of multiple complex medical issues. Further recommendations to follow. See orders for details. Discussed with the patient at length and we will follow the patient closely with Infectious Disease. Further recommendations to follow. MMODL / IJN: [id number] /
[2018-04-30] MEDS: IOPAMIDOL-300 CONTRAST 30 ML VIAL (ORAL USE) PO PRN ×2 (16:30→17:27)
--- NOTE | 2018-04-30 19:05 | CT ---
EXAMINATION TYPE: CT ChestAbdPelvis wo con DATE OF EXAM: 04/30/2018 COMPARISON: CT abdomen and pelvis from 3 days ago. HISTORY: Sepsis, free fluid abdomen. CT DLP: 893 mGycm. Automated Exposure Control for Dose Reduction was Utilized. TECHNIQUE: CT scan of the thorax, abdomen and pelvis is performed with oral but without IV contrast. FINDINGS: Within the limitations of a noncontrast study following observations are made. LUNGS: There are small to moderate-sized right greater than left pleural effusions. Lung findings are degraded by motion artifact making evaluation suboptimal partially for subcentimeter nodularity. The re is associated compressive atelectasis in the right lung base. There is linear atelectasis in the l eft lung base. MEDIASTINUM: There are no greater than 1 cm hilar or mediastinal lymph nodes. There is stable small t o tiny pericardial effusion seen anteriorly and inferiorly. No cardiomegaly is noted. OTHER: No additional significant abnormality is seen. LIVER/GB: No significant abnormality is appreciated. PANCREAS: No significant abnormality is seen. SPLEEN: No significant abnormality is seen. ADRENALS: No significant abnormality is seen. KIDNEYS: No significant abnormality is seen. BOWEL: Oral contrast reaches level of the sigmoid colon. There is no suspicious small or large bowel dilatation. Mild wall thickening mid to distal sigmoid colon near axial image 102 is felt present tho ugh this is likely product of under distention. GENITAL ORGANS: Anteverted uterus is seen. There is more prominent small to moderate amount of free f luid in pelvic cul-de-sac axial image 112. LYMPH NODES: Stable slightly enlarged right groin lymph node measuring 1.5 x 1.1 cm axial image 122. There are additional prominent retroperitoneal lymph nodes redemonstrated borderline enlarged without significant interval change seen better on prior contrast-enhanced study OSSEOUS STRUCTURES: There is grade 1 anterolisthesis L4 on L5. Moderate multilevel spurring in the mi d to lower thoracic spine. OTHER: New mild diffuse subcutaneous edema is present. Subcutaneous gas anterior abdominal wall is pr esumed product of subcutaneous medicine injection. IMPRESSION: No new well-formed fluid collection or abscess identified. New small to moderate-sized r ight greater than left pleural effusions and increasing small to moderate amount of pelvic ascites wi th new mild subcutaneous edema is presumed product of desired fluid overload state.
[2018-04-30] MEDS ORDERED: VANCOMYCIN TROUGH DUE 1 EACH MISC MISCELLANE ONE (20:00)
[2018-04-30] MEDS: TEMAZEPAM 15 MG CAP PO PRN (21:50)
[2018-04-30] MEDS: Acetaminophen-Codeine 300-30mg TAB PO PRN (21:51)
[2018-05-01] MEDS: 0.9% NACL WITH KCL 20 MEQ/L 1,000 ML IV SCH (04:16)
--- NOTE | 2018-05-01 04:41 | PN ---
PROGRESS NOTE DATE OF SERVICE: 04/30/2018 REASON FOR FOLLOWUP: Enterobacter UTI and Streptococcus pyogenes bacteremia. INTERVAL HISTORY: The patient is currently afebrile. She is breathing comfortably. Denies significant chest pain or cough. No abdominal pain worsening. No worsening back pain. No diarrhea or any burning or frequency of urine. EXAMINATION: Blood pressure 132/52 with a pulse of 82. Temperature 97.9. She is 92% on room air. General description is a middle aged female lying in bed in no distress. RESPIRATORY SYSTEM: Unlabored breathing. Clear to auscultation anteriorly. HEART: S1, S2. Regular rate and rhythm. ABDOMEN: Soft, no tenderness. LABS: Hemoglobin 9.5, white count 16.8 with a BUN of 14, creatinine 0.87. Blood culture repeat has been negative. DIAGNOSTIC IMPRESSION AND PLAN: Patient admitted to the hospital with urinary tract infection and also have Streptococcus pyogenes positive blood culture with no clear focus. Repeat blood culture has been negative so far. Plan is to keep the patient on Rocephin 2 g daily while waiting for the white count to normalize and hopefully finish therapy with oral antibiotic. She did have an MRI of the lumbosacral spine completed which did not show any evidence of diskitis or osteomyelitis. MMODL / IJN: [id number] /
[2018-05-01 07:20] LABS: Anion Gap 7 mmol/L; Blood Urea Nitrogen 10 mg/dL (7-17); Calcium 8.3 mg/dL (8.4-10.2); Carbon Dioxide 23 mmol/L (22-30); Chloride 110 mmol/L (98-107); Glucose 98 mg/dL (74-99); Potassium 3.8 mmol/L (3.5-5.1); Sodium 140 mmol/L (137-145)
[2018-05-01 07:28] LABS: HCT 31.1 % (34.0-46.0); HGB 9.9 gm/dL (11.4-16.0); MCH 29.9 pg (25.0-35.0); MCHC 31.8 g/dL (31.0-37.0); Mean Platelet Volume 7.2; Platelet Count 585 k/uL (150-450); RBC 3.31 m/uL (3.80-5.40); RDW 13.7 % (11.5-15.5); WBC 17.5 k/uL (3.8-10.6)
[2018-05-01] MEDS: FLUoxetine HCL 20 MG CAP PO SCH (07:55)
[2018-05-01] MEDS: cefTRIAXone IN SWFI 2,000 MG/20 ML SYRINGE IVP SCH (07:56)
[2018-05-01] MEDS: PANTOPRAZOLE 40 MG/10 ML VIAL IV SCH (07:56)
[2018-05-01] MEDS: HEPARIN SODIUM,PORCINE 5,000 UNIT/ML 1 ML VIAL SQ SCH ×2 (07:56→20:24)
[2018-05-01 09:10] LABS: Band Neutrophils % 4 %; Metamyelocytes # (M) 0.88 k/uL (0); Metamyelocytes % 5 %; Monocytes # (M) 0.35 k/uL (0-1.0); Myelocytes # (M) 0.53 k/uL (0); Myelocytes % 3 %; Neutrophils % (M) 79 %; Nucleated Red Blood Cells 0 /100 WBC (0-0); Total Cells Counted 200
[2018-05-01 09:11] LABS: Toxic Granulation Present
[2018-05-01] MEDS ORDERED: FUROSEMIDE 10 MG/ML 2 ML VIAL IV ONE (11:19)
[2018-05-01] MEDS: FOLIC ACID 1 MG TAB PO SCH (13:13)
[2018-05-01] MEDS: MULTIVITAMINS, THERA 1 EACH TAB PO SCH (13:13)
[2018-05-01] MEDS: THIAMINE 100 MG TAB PO SCH (13:13)
--- NOTE | 2018-05-01 21:21 | PN ---
PROGRESS NOTE DATE OF SERVICE: 05/01/2018 This 57-year-old woman was admitted with sepsis, also is complaining of some back pain and the lumbar x-rays did not show acute abnormality. CT scan of the abdomen and pelvis showed stable findings at this time. Patient also had UTI, multiple organisms grown from the culture. The most recent cultures are negative so far. The patient on broad IV antibiotics. Dr. Lopez is following the patient closely. No chest pain or palpitation. No shortness of breath. PHYSICAL EXAM: Alert and oriented times three. Pulse 87. Blood pressure 130/70, respiration 18, temperature 99.7, pulse ox 97% on room air. HEENT: Conjunctivae normal. Oral mucosa moist. Neck is no jugular venous distention. No carotid bruit. No lymph node enlargement. Cardiovascular : S1, S2 muffled. RESPIRATORY: Breath sounds diminished in the bases. A few scattered rhonchi and crackles. ABDOMEN: Soft, nontender. No mass palpable. Legs: No edema. No swelling. Central nervous system: No focal deficits. LABS: WBC 17.8, hemoglobin 9.9. ASSESSMENT: 1. Acute urinary tract infection with possible sepsis, Enterobacter cloacae present on admission. 2. Streptococcus pyogenes group A from blood with sepsis. 3. Headaches. 4. Back pain. No evidence of any paraspinal abscess in the MRI. 5. Increased AST. 6. Increased alkaline phosphatase. 7. Increased WBC. 8. Anemia, normocytic anemia of chronic disease. 9. Hypertension. 10.History of cervical cancer status post chemotherapy, radiation. 11.History of appendectomy. 12.History of depression. RECOMMENDATIONS AND DISCUSSION: Recommend to continue current medications, management. Symptomatic treatment. Otherwise at this time, we will monitor the patient closely. Continue with antibiotics. Repeat cultures. Guarded prognosis. Further recommendations to follow. MMODL / IJN: [id number] / [facility] HOSPITALBaljit
[2018-05-01] MEDS: Acetaminophen-Codeine 300-30mg TAB PO PRN (22:06)
[2018-05-01] MEDS: TEMAZEPAM 15 MG CAP PO PRN (22:06)
--- NOTE | 2018-05-02 00:12 | PN ---
PROGRESS NOTE DATE OF SERVICE: 05/01/2018. REASON FOR FOLLOWUP VISIT: 1. Bacterial urinary tract infection. 2. Streptococcus pyogenes bacteremia. INTERVAL HISTORY: The patient is afebrile. She is breathing more comfortably. Denies any chest pain or any cough. No abdominal pain. No back pain or any diarrhea. EXAMINATION: Blood pressure 136/79 with a pulse of 89, temperature of 98.6. She is 98%. GENERAL DESCRIPTION: A middle aged female, lying in bed in no distress. RESPIRATORY SYSTEM: Unlabored breathing. Clear to auscultation anteriorly. HEART: S1, S2. Regular rate and rhythm. ABDOMEN: Soft, no tenderness. EXTREMITIES: No edema of the feet. LABS: Hemoglobin is 9.9, white count 17.5 with a BUN of 10, creatinine 0.82. Blood culture repeat has been negative. Urine with Enterobacter cloacae, likely streptococcus pyogenes. DIAGNOSTIC IMPRESSION AND PLAN: Patient with admission to the hospital with generalized weakness, no energy, and some back pain. The patient did have evidence of Streptococcus pyogenes bacteremia, but no other clear focus. No evidence of any cellulitis. MRI of the lumbosacral spine was negative for diskitis and Enterobacter urinary tract infection. The patient did have extensive workup including CT of chest, abdomen and pelvis and lumbosacral spine MRI did not show evidence of any abscess. The patient is currently on ceftriaxone, that will be continued and transition to oral antibiotic on discharge with close outpatient followup. Continue supportive care. MMODL / IJN: [id number] /
[2018-05-02 06:49] LABS: HGB 9.6 gm/dL (11.4-16.0); MCH 31.2 pg (25.0-35.0); MCHC 33.3 g/dL (31.0-37.0); MCV 93.6 fL (80.0-100.0); Mean Platelet Volume 6.9; Platelet Count 488 k/uL (150-450); RBC 3.09 m/uL (3.80-5.40); WBC 14.7 k/uL (3.8-10.6)
[2018-05-02 06:53] LABS: Anion Gap 7 mmol/L; Blood Urea Nitrogen 10 mg/dL (7-17); Calcium 7.8 mg/dL (8.4-10.2); Carbon Dioxide 23 mmol/L (22-30); Chloride 108 mmol/L (98-107); Glucose 98 mg/dL (74-99); Potassium 3.3 mmol/L (3.5-5.1); Sodium 138 mmol/L (137-145)
[2018-05-02 07:26] LABS: Band Neutrophils % 1 %; Eosinophils # (M) 0.15 k/uL (0-0.7); Lymphocytes # (M) 1.32 k/uL (1.0-4.8); Monocytes # (M) 0.29 k/uL (0-1.0); Myelocytes # (M) 1.03 k/uL (0); Myelocytes % 7 %; Neutrophils % (M) 82 %; Nucleated Red Blood Cells 0 /100 WBC (0-0); Total Cells Counted 200
[2018-05-02] MEDS: PANTOPRAZOLE 40 MG/10 ML VIAL IV SCH (09:39)
[2018-05-02] MEDS: HEPARIN SODIUM,PORCINE 5,000 UNIT/ML 1 ML VIAL SQ SCH ×2 (09:39→21:28)
[2018-05-02] MEDS: FLUoxetine HCL 20 MG CAP PO SCH (09:39)
[2018-05-02] MEDS: cefTRIAXone IN SWFI 2,000 MG/20 ML SYRINGE IVP SCH (09:40)
--- NOTE | 2018-05-02 10:34 | ECHOF ---
Referral Reason:fever MEASUREMENTS -------- HEIGHT: 162.6 cm WEIGHT: 79.4 kg BP: 134/69 IVSd: 1.3 cm (0.6 - 1.1) LVIDd: 4.5 cm (3.9 - 5.3) LVPWd: 1.0 cm (0.6 - 1.1) IVSs: 1.8 cm LVIDs: 2.8 cm LVPWs: 1.4 cm LAESV Index (A-L): 36.92 ml/m Ao Diam: 3.1 cm (2.0 - 3.7) AV Cusp: 1.9 cm (1.5 - 2.6) LA Diam: 3.4 cm (2.7 - 3.8) MV EXCURSION: 25.206 mm (> 18.000) MV EF SLOPE: 129 mm/s (70 - 150) EPSS: 0.9 cm MV E Yash: 1.13 m/s MV DecT: 177 ms MV A Yash: 1.09 m/s MV E/A Ratio: 1.03 RAP: 5.00 mmHg RVSP: 49.07 mmHg FINDINGS -------- Sinus rhythm. This was a technically good study. The left ventricular size is normal. There is mild concentric left ventricular hypertrophy. Overa ll left ventricular systolic function is normal with, an EF between 55 - 60 %. The right ventricle is normal in size and function. LA is moderately dilated 34-39 ml/m2 The right atrium is normal in size. The aortic valve is trileaflet, and appears structurally normal. No aortic stenosis or regurgitation. The mitral valve is normal. Mild mitral regurgitation is present. Mild tricuspid regurgitation present. There is mild to moderate pulmonary hypertension. The right ventricular systolic pressure, as measured by Doppler, is 49.07mmHg. There is no pulmonic regurgitation present. The aortic root size is normal. There is a trivial pericardial effusion present. CONCLUSIONS -------- 1. Sinus rhythm. 2. This was a technically good study. 3. The left ventricular size is normal. 4. There is mild concentric left ventricular hypertrophy. 5. Overall left ventricular systolic function is normal with, an EF between 55 - 60 %. 6. LA is moderately dilated 34-39 ml/m2 7. The aortic valve is trileaflet, and appears structurally normal. No aortic stenosis or regurgitati on. 8. Mild mitral regurgitation is present. 9. Mild tricuspid regurgitation present. 10. There is mild to moderate pulmonary hypertension. 11. There is no pulmonic regurgitation present. 12. The aortic root size is normal. 13. There is a trivial pericardial effusion present. ORCHID TRANSPLANTER: Brenna Nichole RDCS
[2018-05-02] MEDS: THIAMINE 100 MG TAB PO SCH (11:51)
[2018-05-02] MEDS: FOLIC ACID 1 MG TAB PO SCH (11:51)
[2018-05-02] MEDS: MULTIVITAMINS, THERA 1 EACH TAB PO SCH (11:51)
[2018-05-02] MEDS: CIPROFLOXACIN HCL 500 MG TAB PO SCH ×2 (12:18→21:29)
--- NOTE | 2018-05-02 19:28 | PN ---
PROGRESS NOTE DATE OF SERVICE: 05/02/2018. This 57-year-old woman is admitted with sepsis and is being closely monitored. No chest pain. No palpitations. White count is still elevated. PHYSICAL EXAM: Alert and oriented times three. Pulse 94, blood pressure 128/70, respiration 16, temperature 98.8, pulse ox 93 percent on room air. HEENT are conjunctivae normal. Oral mucosa moist. Neck is no jugular venous distention. No carotid bruit. No lymph node enlargement. Cardiovascular system: S1, S2 muffled. Respiratory: Breath sounds diminished in the bases. Scattered rhonchi. No crackles. ABDOMEN: Soft, nontender. No mass palpable. Legs no edema and no swelling. NERVOUS SYSTEM: Higher functions as mentioned earlier. Moves all four limbs. No focal deficits. Lymphatics: No lymph nodes palpable in the neck, axillae or groin. SKIN: No ulcer, rash or bleeding. LAB STUDIES: WBC 14, hemoglobin is 9.6, otherwise the sodium 138, potassium 3.3. ASSESSMENT: 1. Acute urinary tract infection with possible sepsis Enterobacter cloacae present on admission. 2. Streptococcus pyogenes Group A from bladder sepsis. 3. Headaches. 4. Back pain. 5. No evidence of any peristoma abscess on the MRI. 6. Increased AST. 7. Increased alkaline phosphatase. 8. Increased WBC. 9. Anemia, normocytic anemia of chronic disease. 10.Hypertension. 11.History of cervical cancer, status post chemotherapy, radiation. 12.History of appendectomy. 13.History of depression. RECOMMENDATIONS AND DISCUSSION: Recommend to continue current medications, management and symptomatic treatment. Repeat labs. Continue the antibiotics. Closely monitor. Guarded prognosis. Further recommendations to follow. MMODL / IJN: [id number] /
[2018-05-02] MEDS: Acetaminophen-Codeine 300-30mg TAB PO PRN (21:28)
[2018-05-02] MEDS: TEMAZEPAM 15 MG CAP PO PRN (21:28)
[2018-05-03 07:06] LABS: HCT 28.7 % (34.0-46.0); HGB 8.9 gm/dL (11.4-16.0); MCH 29.6 pg (25.0-35.0); MCHC 31.2 g/dL (31.0-37.0); Mean Platelet Volume 6.9; Platelet Count 473 k/uL (150-450); RBC 3.02 m/uL (3.80-5.40); WBC 12.1 k/uL (3.8-10.6)
[2018-05-03 07:18] LABS: Calcium 7.7 mg/dL (8.4-10.2); Potassium 3.4 mmol/L (3.5-5.1)
[2018-05-03] MEDS ORDERED: PANTOPRAZOLE 40 MG TABLET PO SCH (07:30)
--- NOTE | 2018-05-03 08:02 | PN ---
PROGRESS NOTE DATE OF SERVICE: 05/02/2018 REASON FOR FOLLOWUP: 1. Enterobacter UTI. 2. Streptococcus pyogenes bacteremia. INTERVAL HISTORY: The patient is afebrile. She is breathing more comfortably. Denies having any chest pain or shortness of breath. Occasional cough. No abdominal pain. No diarrhea. PHYSICAL EXAMINATION: On examination, her blood pressure is 127/69 with a pulse of 83, temperature 99.7. She is 94% on room air General description is a middle-aged female lying in bed in no distress. RESPIRATORY SYSTEM: Unlabored breathing, clear to auscultation anteriorly. HEART: S1, S2. Regular rate and rhythm. ABDOMEN: Soft, no tenderness. LABS: White count down to 14.7. Blood culture repeat has been negative. BUN of 10, creatinine 0.82. DIAGNOSTIC IMPRESSION AND PLAN: 1. Patient with Enterobacter cloacae urinary tract infection. Oral Cipro has been added. 2. Patient with Streptococcus pyogenes bacteremia. Repeat blood culture negative. She did have extensive workup including a CT of chest, abdomen and pelvis and lumbosacral MRI with no evidence of any abscess. Currently on ceftriaxone that will be switched to oral Keflex 500 mg t.i.d. for 10 days. Prescription has been sent to the pharmacy with close outpatient followup. MMODL / IJN: [id number] /
[2018-05-03 08:19] LABS: Band Neutrophils % 4 %; Eosinophils # (M) 0.36 k/uL (0-0.7); Lymphocytes # (M) 1.57 k/uL (1.0-4.8); Metamyelocytes # (M) 0.48 k/uL (0); Metamyelocytes % 4 %; Monocytes # (M) 0.48 k/uL (0-1.0); Myelocytes # (M) 0.24 k/uL (0); Myelocytes % 2 %; Neutrophils % (M) 72 %; Nucleated Red Blood Cells 0 /100 WBC (0-0); Total Cells Counted 200
[2018-05-03 08:20] LABS: Toxic Granulation Present
[2018-05-03] MEDS ORDERED: Potassium Replacement Protocol 1 EACH MISC MISCELLANE PRN (09:05)
[2018-05-03 09:17] VITALS: RESP 16
[2018-05-03] MEDS: cefTRIAXone IN SWFI 2,000 MG/20 ML SYRINGE IVP SCH (09:48)
[2018-05-03] MEDS: CIPROFLOXACIN HCL 500 MG TAB PO SCH (09:48)
[2018-05-03] MEDS: FLUoxetine HCL 20 MG CAP PO SCH (09:48)
[2018-05-03] MEDS: POTASSIUM CHLORIDE ER 20 MEQ TAB.ER PO SCH ×2 (09:48→11:34)
[2018-05-03] MEDS: HEPARIN SODIUM,PORCINE 5,000 UNIT/ML 1 ML VIAL SQ SCH (09:48)
[2018-05-03] MEDS: MULTIVITAMINS, THERA 1 EACH TAB PO SCH (12:04)
[2018-05-03] MEDS: THIAMINE 100 MG TAB PO SCH (12:04)
[2018-05-03] MEDS: FOLIC ACID 1 MG TAB PO SCH (12:04)
[2018-05-03 14:32] VITALS: BP 146/80; PULSE 80; TEMP 98.9
--- NOTE | 2018-05-03 16:05 | PN ---
PROGRESS NOTE DATE OF SERVICE: 05/03/2018. REASON FOR FOLLOWUP: 1. Enterobacter UTI. 2. Streptococcus pyogenes bacteremia. INTERVAL HISTORY: The patient is currently afebrile. She is breathing comfortably. Denies having any chest pain. No shortness of breath or cough. No abdominal pain. No nausea, vomiting, or any diarrhea. EXAMINATION: Blood pressure 120/70 with a pulse of 95. Temperature 98.6. She is 95% on room air. General description is a middle aged female lying in bed in no distress. Respiratory system: Unlabored breathing. Clear to auscultation anteriorly. Heart S1, S2. Regular rate and rhythm. Abdomen soft, no tenderness. LAB: Hemoglobin 8.9 with white count 4.1. BUN of 12, creatinine 0.88. DIAGNOSTIC IMPRESSION AND PLAN: 1. Patient with Enterobacter cloacae UTI for which the patient will continue oral Cipro to finish course of therapy. 2. Patient with streptococcus pyogenes bacteremia with no fever focus. The patient did have extensive workup. No evidence of any abscess. She will finish therapy with oral Keflex 500 mg t.i.d. for 10 days with close outpatient followup. MMODL / IJN: [id number] /
--- NOTE | 2018-05-04 06:24 | DS ---
DISCHARGE SUMMARY DATE OF SERVICE: 05/03/2018 FINAL DIAGNOSES: 1. Acute urinary tract infection with Enterobacter cloacae present on admission. 2. Streptococcus pyogenes group A from sepsis. 3. Headaches. 4. Back pain. 5. No evidence of any abscess on the MRI. 6. Increased AST. 7. Increase alkaline phosphatase. 8. Increased WBC. 9. Anemia normocytic anemia of chronic disease. 10.Hypertension. 11.History of cervical cancer, status post chemoradiation. 12.History of appendectomy. 13.History of depression. DISCHARGE DISPOSITION: The patient will be discharged in stable condition with guarded prognosis. HISTORY OF PRESENT ILLNESS: This 57-year-old woman with a past medical history of multiple medical problems being followed up by Juan Maria in outpatient setting was admitted with UTI. Patient was given antibiotic. Patient also had strep pyogenes group A from the blood, but subsequently the most recent blood culture negative. Patient improved significantly. Patient also had multiple symptomatology during hospitalization as mentioned early. Dr. Lopez saw the patient. Patient improved significantly. On exam, vitals are stable. CARDIOVASCULAR: S1 and S2 muffled. ABDOMEN: Soft. NERVOUS SYSTEM: No focal deficits. DISCHARGE ADVICE: 1. Diet is cardiac. 2. Activity limited until followup. 3. Follow up with Dr. Chadwick and Dr. Maria in 2 to 3 days. 4. Follow up with Dr. Lopez as recommended. Medications are: 1. Fish oil 1 p.o. daily. 2. Prozac 40 mg p.o. daily. 3. Keflex 500 mg q.8 for 10 days. 4. Cipro 500 mg p.o. b.i.d. for 10 days. 5. Folic acid 1 mg daily. 6. Multivitamins 1 p.o. daily. 7. Protonix 40 mg daily. 8. Thiamine 100 mg p.o. daily. 9. Yogurt 1 p.o. t.i.d. Once again, the patient will be discharged in a stable condition with guarded prognosis. MMODL / IJN: [id number] /
== END 2018-05-03 16:26 | disposition home or self-care (01) | DRG 872 ==
LOC: EC 15:56 → 5MS5E 20:30 → 6PED 05-01 18:32
PROVIDERS: ADMIT Internal Medicine; ATTEND Internal Medicine
DX: A41.59 Other Gram-negative sepsis (principal); N39.0 Urinary tract infection, site not specified; I45.81 Long QT syndrome; R51 Headache; I10 Essential (primary) hypertension; M54.41 Lumbago with sciatica, right side; M46.90 Unspecified inflammatory spondylopathy, site unspecified; M48.061 Spinal stenosis, lumbar region without neurogenic claudication; D63.8 Anemia in other chronic diseases classified elsewhere; R74.8 Abnormal levels of other serum enzymes; Z79.899 Other long term (current) drug therapy; Z85.41 Personal history of malignant neoplasm of cervix uteri; Z90.49 Acquired absence of other specified parts of digestive tract; Z86.59 Personal history of other mental and behavioral disorders; Z88.1 Allergy status to other antibiotic agents; Z88.0 Allergy status to penicillin; Z88.2 Allergy status to sulfonamides; Z88.8 Allergy status to other drugs, medicaments and biological substances; Z92.21 Personal history of antineoplastic chemotherapy; Z92.3 Personal history of irradiation; Z82.49 Family history of ischemic heart disease and other diseases of the circulatory system
CPT/HCPCS: 36415; 70450; 71046; 71250; 72158; 72197; 74176; 74177; 80048; 80053; 81001; 82150; 82272; 83605; 83690; 84132; 84484; 85025; 86850; 86900; 86901; 87040; 87077; 87086; 87186; 93005; 93306; 96361; 96374; 99285

== ENCOUNTER → 2022-03-10 | Outpatient (CLI) | payer BC ==
[2022-03-10 18:03] LABS: Basophils # (A) 0.03 X 10*3/uL (0.00-0.10); Basophils % (A) 0.5 %; Eosinophils # (A) 0.04 X 10*3/uL (0.04-0.35); Eosinophils % (A) 0.7 %; HCT 40.9 % (37.2-46.3); HGB 13.2 g/dL (12.0-15.0); Immature Grans, Automated 0.5 %; Lymphocytes # (A) 0.94 X 10*3/uL (0.90-5.00); MCH 30.6 pg (27.0-32.0); MCHC 32.3 g/dL (32.0-37.0); MCV 94.7 fL (80.0-97.0); Mean Platelet Volume 10.7 fL (9.5-12.2); Monocytes # (A) 0.32 X 10*3/uL (0.20-1.00); Monocytes % (A) 5.4 %; NRBC Per 100 WBC 0 /100 WBCS (0.0-0.0); Neutrophils # (A) 4.52 X 10*3/uL (1.80-7.70); Neutrophils % (A) 76.9 %; Platelet Count 281 X 10*3/uL (140-440); RBC 4.32 X 10*6/uL (4.10-5.20); RDW 12.2 % (11.5-14.5); WBC 5.88 X 10*3/uL (4.50-10.00)
[2022-03-10 18:12] LABS: African American GFR (CKD) 56.3 (60.0-200.0); BUN/Creat Ratio 20.34 Ratio (12.00-20.00); Blood Urea Nitrogen 24.2 mg/dL (9.0-27.0); Calcium 9.3 mg/dL (8.7-10.3); Carbon Dioxide 23.1 mmol/L (20.0-27.5); Non-African American GFR(CKD) 48.6 (60.0-200.0); Potassium 4.5 mmol/L (3.5-5.5)
[2022-03-10 18:29] LABS: INR 0.9 (0.90-1.11); Prothrombin Time 10.2 sec (9.9-11.9)
== END | disposition home or self-care (01) ==
LOC: LABPAT 12:38
PROVIDERS: ATTEND Orthopaedic Surgery
DX: Z01.812 Encounter for preprocedural laboratory examination (principal); M17.12 Unilateral primary osteoarthritis, left knee
CPT/HCPCS: 80048; 85025; 85610; 87070; 93005

== ENCOUNTER 2022-03-30 06:07 | Day surgery (SDC) | payer BC ==
[2022-03-24 13:37] VITALS: BMI 26.6
--- NOTE | 2022-03-29 12:16 | HP ---
HISTORY AND PHYSICAL DATE OF SURGERY: 03/30/2022 Kim Youssef is a 61-year-old patient seen with symptomatic left knee osteoarthritis. We discussed treatment options. She elected to proceed with left total knee arthroplasty. Consent regarding the procedure was obtained. PAST MEDICAL HISTORY: Hyperlipidemia, hypertension. PAST SURGICAL HISTORY: Appendectomy, tonsillectomy. DAILY MEDICATIONS: Amlodipine, Lipitor, Zyrtec. ALLERGIES: NONE. SOCIAL HISTORY: She denies tobacco use. PHYSICAL EVALUATION OF THE LEFT KNEE: Range of motion is negative 3 to 130. Moderate effusion. Tenderness along the lateral joint line. Positive lateral Мария's. Ligaments stable. Hip rotation without pain. [id number] negative. Crepitus along the lateral patellofemoral compartments with range of motion. There is a genu valgum deformity. Her distal neurovascular exam is intact. Radiographs of the left knee reveal severe osteoarthritic changes along the lateral compartment. IMPRESSION: 1. Left knee osteoarthritis. 2. Hypertension. 3. Hyperlipidemia. PLAN: Left total knee arthroplasty. MMODL / IJN: [id number] /
[~2022-03-30 06:07] MED LIST: ACETAMINOPHEN TAB 500 MG TAB PO PRN; MELOXICAM 7.5 MG TAB PO PRN; TRANEXAMIC ACID IN NACL,ISO-OS 1,000 MG in SALINE 1 100ML.BAG IVPB PRN
[2022-03-30] MEDS ORDERED: METOCLOPRAMIDE 5 MG/ML 2 ML VIAL IVP PRN (06:08)
[2022-03-30] MEDS ORDERED: LIDOCAINE 1% (10MG/ML) FOR IV START INTRADERMA PRN (06:08)
[2022-03-30] MEDS ORDERED: DEXAMETHASONE SOD PHOSPHATE 4 MG/ML 1 ML VIAL IV ONE (06:08)
[2022-03-30] MEDS ORDERED: LACTATED RINGERS 1,000 ML IV SCH (06:08)
[2022-03-30] MEDS ORDERED: HYDROmorphone 0.5 MG/0.5 ML SYRINGE IVP PRN ×3 (06:08→09:39)
[2022-03-30] MEDS ORDERED: ONDANSETRON 4 MG/2 ML VIAL IVP ONE (06:08)
[2022-03-30] MEDS ORDERED: MIDAZOLAM 2 MG/2 ML VIAL IVP ONE (07:04)
[2022-03-30] MEDS ORDERED: NEOSTIGMINE 1 MG/ML 10 ML VIAL ONE (07:28)
[2022-03-30] MEDS ORDERED: fentaNYL (PF) 50 MCG/ML 2 ML AMP ONE (07:28)
[2022-03-30] MEDS ORDERED: SUCCINYLCHOLINE CHLORIDE 100 MG/5 ML SYR IV ONE (07:28)
[2022-03-30] MEDS ORDERED: ROCURONIUM 10 MG/ML (5 ML VIAL) IV ONE (07:28)
[2022-03-30] MEDS ORDERED: ROPIVACAINE 5 MG/ML 30 ML VIAL ONE (07:28)
[2022-03-30] MEDS ORDERED: LIDOCAINE 2% INJ 20 MG/ML (2 ML VIAL) ONE (07:28)
[2022-03-30] MEDS ORDERED: GLYCOPYRROLATE 0.2 MG/ML 2 ML VIAL ONE (07:28)
[2022-03-30] MEDS ORDERED: TRANEXAMIC ACID IN NACL,ISO-OS 1,000 MG/100 ML BAG ONE (07:28)
[2022-03-30] MEDS ORDERED: DEXAMETHASONE SOD PHOSPHATE 4 MG/ML 1 ML VIAL ONE (07:28)
[2022-03-30] MEDS ORDERED: MIDAZOLAM 2 MG/2 ML VIAL ONE (07:28)
[2022-03-30] MEDS ORDERED: PROPOFOL 10 MG/ML 20 ML VIAL IV ONE (07:28)
[2022-03-30 07:31] VITALS: RESP 16
[2022-03-30] MEDS ORDERED: ceFAZolin 1,000 MG in SODIUM CHLORIDE 0.9% 1,000 ML IRRIGATION ONE (07:35)
--- NOTE | 2022-03-30 07:54 | P.ANPRN ---
Procedure Note - Anesthesia - Nerve Block Performed Left Adductor Canal Infusion Time Out Performed: Yes Date of Procedure: 03/30/22 Procedure Start Time: 07:03 Procedure Stop Time: 07:12 Location of Patient: PreOp Indication: Acute Post-Operative Pain, Analgesia, Requested by Surgeon Specifically requested for management of pain by DrAntonio: Chadd Adler Sedation Type: Sedate with meaningful contact maintained Preparation: Sterile Prep, Sterile Dressing Position: Supine Catheter: Indwelling Needle Types: Pajunk Needle Gauge: 21 Ultrasound used to visualize needle placement: Yes Ultrasound used to observe medication spread: Yes Injectate: 0.5% Ropivacaine (see comment for volume) Blood Aspirated: No Pain Paresthesia on Injection Noted: No Resistance on Injection: Normal Image Stored and Saved: Yes Events: Uneventful and Well Tolerated (Ropivacaine 0.5% 20 mls)
--- NOTE | 2022-03-30 07:56 | P.ANPRN ---
Procedure Note - Anesthesia - Nerve Block Performed Left Aldo Single Date of Procedure: 03/30/22 Procedure Start Time: 07:12 Procedure Stop Time: :19 Location of Patient: PreOp Indication: Acute Post-Operative Pain, Requested by Surgeon Specifically requested for management of pain by DrAntonio: Chadd Adler Sedation Type: Sedate with meaningful contact maintained Preparation: Sterile Prep Position: Supine Catheter: None Needle Types: On-Q Needle Gauge: 20 Ultrasound used to visualize needle placement: Yes Ultrasound used to observe medication spread: Yes Injectate: 0.5% Ropivacaine (see comment for volume) Blood Aspirated: No Pain Paresthesia on Injection Noted: No Resistance on Injection: Normal Image Stored and Saved: Yes Events: Uneventful and Well Tolerated (Ropivacaine 0.5% with Decadron 4 mgs)
[2022-03-30] MEDS ORDERED: ROPIVACAINE 0.2%-NS ON-Q PUMP 1,090 MG, EMPTY PAIN BALL 1 EACH MISCELLANE PRN (07:57)
[2022-03-30] MEDS ORDERED: LACTATED RINGERS 1,000 ML IV ONE ×2 (09:04→09:39)
[2022-03-30] MEDS ORDERED: HYDROmorphone 1 MG/ML 1 ML SYRINGE IVP PRN (09:39)
[2022-03-30] MEDS ORDERED: HYDROcodone/APAP 7.5-325MG 1 EACH TAB PO PRN (09:39)
[2022-03-30] MEDS ORDERED: NALOXONE 0.4 MG/ML 1 ML VIAL IV PRN (09:39)
[2022-03-30] MEDS ORDERED: HYDROcodone/APAP 5-325MG 1 EACH TAB PO PRN (09:39)
[2022-03-30] MEDS ORDERED: ONDANSETRON 4 MG/2 ML VIAL IVP PRN (09:39)
--- NOTE | 2022-03-30 09:39 | P.OP ---
Date of Procedure: 03/30/22 Preoperative Diagnosis: Left knee osteoarthritis Postoperative Diagnosis: Left knee osteoarthritis Procedure(s) Performed: Left total knee arthroplasty Implants: 1. Depuy attune size 4 left cruciate-retaining cemented femur 2. Depuy attune size 4 fixed bearing cemented tibial baseplate 3. Depuy attune size 4 fixed bearing cruciate retaining 6 mm polyethylene tibial insert 4. Depuy attune 35 mm all polyethylene cemented patella Anesthesia: GETA, regional (Adductor canal catheter, Ipack block) Surgeon: Chadd Adler Communication Technician #1: Navid Salazar Estimated Blood Loss (ml): 75 Pathology: other (Bone) Condition: stable Disposition: PACU Indications for Procedure: 61-year-old patient seen with symptomatic left knee osteoarthritis. After treatment options were discussed, she elected to proceed with total knee arth roplasty. Operative Findings: see description of procedure Description of Procedure: Patient was taken to the operative suite after having an adductor canal catheter placed by the department of anesthesia as well an I pack block for postoperative pain management. Patient underwent a general anesthetic by the department of anesthesia. Patient was given preoperative IV intake antibiotics and TXA. A well-padded tourniquet was placed about the left lower extremity. The lower extremity was then prepped and draped in the normal sterile orthopedic fashion. The extremity was elevated, a tourniquet was insufflated to 300. A standard anterior incision was made sharply through skin. Dissection was taken down through the subcutaneous soft tissues down to the extensor mechanism. A medial arthrotomy was performed, patella was everted and knee was flexed. There was advanced osteoarthritis noted. I introduced my distal intramedullary femoral drill. I then introduced the distal femoral cutting jig. Carlos AGRAWAL secured the cutting jig with 2 pins. I held retractors in position while Carlos AGRAWAL performed the distal femoral resect ion through the guide area we now removed her distal femoral cutting guide. We now placed our 4-in-1 femoral cutting block and positioned and it was secured with 2 pins by Carlos AGRAWAL while I held the block in position. The distal femoral finishing was now completed. A proximal tibial cutting guide was positioned. I held the guide in the appropriate position with both hands well Carlos AGRAWAL inserted stabilizing pins into the guide. Proximal tibial cut was made. We now placed a trial femoral component into position, along with an appropriate size tibial tray and insert. We now took the knee through range of motion and had full extension good flexion and good overall soft tissue balance noted. The patella was everted and stabilized with 2 towel clips held by Carlos AGRAWAL while I performed a flush with patellar quad tendon utilizing a fresh sawblade. We templated the patella, appropriate drill holes were made. An appropriate trial patella was positioned, knee was taken through full range of motion with the patella tracking very nicely. The trial patella was removed. Drill holes were made through the femoral component. All trial components were removed after marking off the appropriate rotation of the tibia. Retractors were now positioned along the proximal tibia. An appropriate keel punch was made with the appropriate size tibial guide by myself on Carlos AGRAWAL assisted by holding retractors. At this point appropriate size implants were chosen and opened. The joint was irrigated copiously with pulse lavage mechanical irrigation. The posterior capsule was infiltrated with local analgesic. The wound was irrigated with pulse lavage mechanical irrigation. We mixed antibiotic methylmethacrylate. We placed the knee into flexion. We placed multiple retractors assisted by Carlos AGRAWAL to expose the proximal tibia. Once the methyl methacrylate was ready, the tibial component was cemented into place removing any excess methylmethacrylate form by both myself and Carlos AGRAWAL. The femoral component was cemented into place removing the removing any excess methylmethacrylate performed by both myself and Carlos AGRAWAL. We then inserted the appropriate size polyethylene tibial insert. We made sure that it was locked into position. We took the knee into full extension, and then back in a flexion making sure we had removed any excess methylmethacrylate. The patellar component was then cemented down and secured with clamp. Excess methylmethacrylate removed. We kept the knee in full extension, patellar clamp in position until methylmethacrylate had hardened. Once it had hardened the patellar clamp was removed. The knee was taken through full range of motion. The patella tracked nicely. There was good soft tissue balancing. The tourniquet was now released. Additional hemostasis was achieved via electrocautery. A second gram of TXA was given. I did note quite a bit of bleeding. I opened up and aquamantis to help control the bleeding. We had good hemostasis at this point. The wound again was irrigated with pulse lavage mechanical irrigation. The superficial soft tissues were infiltrated local analgesic. The extensor mechanism was repaired with Ethibond suture. We checked the repair with range of motion and it was stable. The subcutaneous soft tissues were repaired with Vicryl in layers. The skin was approximated with pernio/Dermabond. Sterile dressings were applied followed by loose web roll and Chuckie bandage. The patient was transferred to a bed, and taken to recovery in stable and satisfactory condition. Carlos AGRAWAL assisted with this complex procedure.
[2022-03-30 09:53] VITALS: TEMP 96.9
[2022-03-30] MEDS ORDERED: ROPIVACAINE 0.2%-NS ON-Q PUMP 2 MG/ML EACH MISCELLANE ONE (10:06)
[2022-03-30] MEDS ORDERED: HYDROmorphone 0.5 MG/0.5 ML SYRINGE IVP ONE (10:15)
[2022-03-30] MEDS ORDERED: IV FLUID CONTINUATION 1,000 ML IV ONE ×2 (10:49→11:54)
[2022-03-30] MEDS ORDERED: HYDROcodone/APAP 5-325MG 1 EACH TAB PO ONE (11:11)
[2022-03-30] MEDS ORDERED: ceFAZolin 10 GM VIAL IVPB ONE (11:29)
[2022-03-30 12:05] VITALS: BP 160/73; PULSE 90
== END 2022-03-30 12:49 | disposition home health service (06) ==
LOC: OR 06:07
PROVIDERS: ATTEND Orthopaedic Surgery
DX: M17.12 Unilateral primary osteoarthritis, left knee (principal); G89.18 Other acute postprocedural pain; I10 Essential (primary) hypertension; E78.5 Hyperlipidemia, unspecified; N28.9 Disorder of kidney and ureter, unspecified; Z90.49 Acquired absence of other specified parts of digestive tract; Z88.0 Allergy status to penicillin; Z88.3 Allergy status to other anti-infective agents; Z88.8 Allergy status to other drugs, medicaments and biological substances; Z88.2 Allergy status to sulfonamides; Z79.82 Long term (current) use of aspirin; Z79.899 Other long term (current) drug therapy; Z82.49 Family history of ischemic heart disease and other diseases of the circulatory system
CPT/HCPCS: 97110; 97161; 64999; 64448; 76942; 88300; 27447; C1776; C1713 ×2; J2250; J1100; J2710; J0690 ×2; J2405; J3010; J2795 ×2; J0330; J2704; J1170; J2001